=== PATIENT | male | born 1955 | race Caucasian/White ===

== ENCOUNTER 2024-07-27 12:26 | Emergency (ER) | payer MEDICARE, OTHER ==
[~2024-07-27] VITALS: Ht 182.9 cm; Wt 107.9 kg
[~2024-07-27 12:26] MED LIST: BUPRENORPHIN-N1 EACH SL; BUPRENORPHINE HC8 MG SL; KETOROLAC TROME10 MG PO; LEVOFLOXACIN500 MG PO; LEVOXYL175 MCG PO; NEURONTIN800 MG PO
[2024-07-27] MEDS ORDERED: BACTRIM DS TAB1 EACH PO (14:40)
[2024-07-27] MEDS ORDERED: TRIMETHOPRIM/SULFAMETHOXAZOLE 1 EA TAB PO ONE (14:45)
[2024-07-27 15:26] VITALS: BP 130/74
== END 2024-07-27 15:26 | disposition home or self-care (01) ==
LOC: ED 12:26
DX: L03.031 Cellulitis of right toe (principal); Z88.5 Allergy status to narcotic agent
CPT/HCPCS: 99283; A9270